=== PATIENT | male | born 1965 | race Caucasian/White ===

== ENCOUNTER → 2016-04-09 | Outpatient (CLI) | payer OTHER ==
[~2016-04-09] MED LIST: ALBU17IN INH; ARTI99.0 OU; LEVA750T PO; PANT40TA2 PO; SYMB16INH INH; TAGA200T3 PO; TYLE650T30 PO; ZYRT10TA2 PO
[2016-04-09 19:06] LABS: ALBUMIN 4.2 GM/DL (3.2-5.2); ALBUMIN/GLOBULIN RATIO 1.11 (1.00-1.93); ALKALINE PHOSPHATASE 59 U/L (45-117); ALT/SGPT 37 U/L (12-78); AMYLASE 45 U/L (25-115); ANION GAP 8 MEQ/L (8-16); AST/SGOT 18 U/L (15-37); BILIRUBIN,TOTAL 0.6 MG/DL (0.2-1.0); BLOOD UREA NITROGEN 14 MG/DL (7-18); CALCIUM LEVEL 9.3 MG/DL (8.5-10.1); CARBON DIOXIDE LEVEL 31 MEQ/L (21-32); CHLORIDE LEVEL 101 MEQ/L (98-107); CREATININE FOR GFR 0.97 MG/DL (0.70-1.30); GLOMERULAR FILTRATION RATE > 60.0 (>56); GLUCOSE, FASTING 88 MG/DL (70-105); POTASSIUM SERUM 4.1 MEQ/L (3.5-5.1); SODIUM LEVEL 140 MEQ/L (136-145)
== END ==
LOC: M WUC 14:04
PROVIDERS: ATTEND Physician Assistant Medical
DX: K85.90 Acute pancreatitis without necrosis or infection, unspecified (principal)

== ENCOUNTER → 2016-04-30 | Outpatient (CLI) | payer OTHER ==
--- NOTE | 2016-04-30 08:26 | REP ---
Right upper quadrant sonography: History: Right upper quadrant abdominal pain. Recent history of acute pancreatitis. Comparison CT study December 24, 2015. Comparison right upper quadrant sonography December 02, 2015. Findings: There is atypical configuration of the liver as seen on CT with a small somewhat nodular left hepatic lobe and a larger right hepatic lobe. Associated with this, the gallbladder has a slightly atypical position more anteriorly position. In addition, the main portal vein has an atypical course in the region of the brianna. These findings are unchanged compared to CT. There is a 1.1 x 0.7 x 0.8 cm hyperechoic zone of the right lobe of the liver compatible with a small hemangioma. This is not visible on CT. No other liver mass lesion is observed. Common bile duct is normal measuring 0.4 cm in greatest diameter. There is no evidence of gallstone or polyp or wall thickening in the gallbladder. No ascites is seen. No right renal abnormality is noted. Right kidney measures 12.3 x 6.2 x 4.2 cm. Impression: Configurational variant in the shape and distribution of the liver with a very small somewhat nodular configuration to the left lobe and a relatively large right lobe. There is a 1.1 cm hemangioma at the dome of the right lobe of the liver. No other significant hepatic finding. Gallbladder is slightly atypical in position but unremarkable morphologically. No stone or polyp seen. Signed by Efren Alexis MD 04/30/2016 12:24 P
== END ==
LOC: M RAD 07:00
PROVIDERS: ATTEND Physician Assistant Medical
DX: D18.00 Hemangioma unspecified site (principal); R10.11 Right upper quadrant pain

== ENCOUNTER → 2016-05-05 | Outpatient (CLI) | payer OTHER ==
--- NOTE | 2016-05-05 13:34 | REP ---
Hepatobiliary scan and gallbladder ejection fraction: History: Right upper quadrant pain. History of pancreatitis. Technique: 5.9 mCi of technetium-99m mebrofenin was injected and sequential anterior images are acquired. 65 minutes after the mebrofenin injection, the patient consumed 8 ounces Ensure and an additional 60 minutes of imaging was acquired. Regions of interest are plotted around the gallbladder. Findings: The initial hepatocellular parenchymal uptake phase is normal and homogeneous. Intra- and extra-hepatic bile ducts and duodenum are labeled by the 10 -minute image. The gallbladder is first labeled on the 15 -minute image. There is normal washout from the liver parenchyma into the gallbladder and small intestine on subsequent images. The gallbladder ejection fraction is normal at 50 %. Values greater than 35 % are considered normal with this technique. Impression: Normal hepatobiliary scan and gallbladder ejection fraction. Signed by Efren Alexis MD 05/05/2016 01:25 P
== END ==
LOC: M RAD 09:05
PROVIDERS: ATTEND Physician Assistant Medical
DX: R10.11 Right upper quadrant pain (principal)

== ENCOUNTER → 2016-09-30 | Outpatient (CLI) | payer OTHER ==
[~2016-09-30] MED LIST changes: +CETI1SYP16 PO; -LEVA750T PO; +LEVA750T7 PO
[2016-09-30 13:27] LABS: BASO # 0.1 K/mm3 (0.0-0.2); BASO % 0.8 % (0.0-1.0); EOS # 0.6 K/mm3 (0.0-0.50); EOS % 8.1 % (0.0-3.0); LARGE UNSTAINED CELL # 0.2 K/mm3 (0.0-0.4); LARGE UNSTAINED CELL % 2.1 % (0.0-4.0); MEAN CORPUSCULAR HEMOGLOBIN 28.8 pg (27.0-33.0); MEAN CORPUSCULAR HGB CONC 34.2 g/dl (32.0-36.5); MEAN CORPUSCULAR VOLUME 84.2 fl (80.0-96.0); MONO # 0.6 K/mm3 (0.0-0.8); MONO % 7.5 % (0.0-5.0); NEUTROPHILS # 4.2 K/mm3 (1.8-7.7); NEUTROPHILS % 56.4 % (36.0-66.0); PLATELET COUNT, AUTOMATED 256 k/mm3 (150-450); RED CELL DISTRIBUTION WIDTH 12.7 % (11.5-14.5); WHITE BLOOD COUNT 7.5 K/mm3 (4.0-10.0)
[2016-09-30 14:15] LABS: ALBUMIN 3.7 GM/DL (3.2-5.2); ALBUMIN/GLOBULIN RATIO 1.03 (1.00-1.93); ALKALINE PHOSPHATASE 51 U/L (45-117); ALT/SGPT 29 U/L (12-78); ANION GAP 8 MEQ/L (8-16); AST/SGOT 13 U/L (15-37); BILIRUBIN,TOTAL 0.5 MG/DL (0.2-1.0); BLOOD UREA NITROGEN 10 MG/DL (7-18); CALCIUM LEVEL 9.2 MG/DL (8.5-10.1); CARBON DIOXIDE LEVEL 27 MEQ/L (21-32); CHLORIDE LEVEL 103 MEQ/L (98-107); CHOLESTEROL LEVEL 141 MG/DL (<200); CREATININE FOR GFR 0.94 MG/DL (0.70-1.30); GLOMERULAR FILTRATION RATE > 60.0 (>56); GLUCOSE, FASTING 103 MG/DL (70-105); POTASSIUM SERUM 4.3 MEQ/L (3.5-5.1); SODIUM LEVEL 138 MEQ/L (136-145); TOTAL PROTEIN 7.3 GM/DL (6.4-8.2); TRIGLYCERIDES LEVEL 127 MG/DL (<150)
== END ==
LOC: M WUC 11:34
PROVIDERS: ATTEND Physician Assistant Medical
DX: K21.9 Gastro-esophageal reflux disease without esophagitis (principal); K22.70 Barrett's esophagus without dysplasia; J45.20 Mild intermittent asthma, uncomplicated

== ENCOUNTER → 2016-10-01 | Outpatient (REF) | payer OTHER ==
[2016-10-01 13:05] LABS: AMYLASE 54 U/L (25-115)
== END ==
LOC: M SFHCADAM 09:28
PROVIDERS: ATTEND Family Medicine
DX: R10.9 Unspecified abdominal pain (principal)

== ENCOUNTER → 2016-11-06 | Outpatient (CLI) | payer OTHER ==
--- NOTE | 2016-11-06 14:30 | REP ---
Clinical: Chronic pain. Technique: AP and lateral views of the right knee. Findings: No acute fracture or dislocation is appreciated. No evidence for effusion. AP view demonstrates minimal increased sclerosis and associated joint space narrowing along the medial compartment. Remainder examination appears relatively normal for age. Impression: Mild degenerative change involving the medial joint compartment. Signed by Kun Chaidez MD 11/06/2016 02:22 P
== END ==
LOC: M ADAMS 14:03
PROVIDERS: ATTEND Physician Assistant Medical
DX: G89.29 Other chronic pain (principal)

== ENCOUNTER 2016-12-12 11:51 | Day surgery (SDC) | payer OTHER ==
[~2016-12-12] VITALS: Ht 175.3 cm; Wt 81.2 kg
[2016-12-12] MEDS ORDERED: PROPOFOL 200 MG/20 ML VIAL As Ordered ONE (12:33)
[2016-12-12] MEDS ORDERED: LIDOCAINE 2% INJ 100 MG/5 ML SDV (FOR ANES.) As Ordered ONE (12:33)
--- NOTE | 2016-12-12 13:03 | ROOR ---
Patient Name: Moy Jacobo Procedure Date: 12/12/2016 12:47 PM Date of : 1965 Age: 51 Room: [facility] Gender: Male Note Status: Finalized Procedure: Upper GI endoscopy Indications: Surveillance for malignancy due to personal history of Burton's esophagus Providers: Efra FAJARDO MD Referring MD: ISRAEL Mcknight Requesting Provider: Medicines: Monitored Anesthesia Care Complications: No immediate complications. Procedure: Pre-Anesthesia Assessment: - The heart rate, respiratory rate, oxygen saturations, blood pressure, adequacy of pulmonary ventilation, and response to care were monitored throughout the procedure. The Endoscope was introduced through the mouth, and advanced to the second part of duodenum. The upper GI endoscopy was accomplished without difficulty. The patient tolerated the procedure well. Findings: There were esophageal mucosal changes consistent with short-segment Burton's esophagus present in the lower third of the esophagus. The maximum longitudinal extent of these mucosal changes was 2 cm in length. Mucosa is smooth, without nodularity. Mucosa was biopsied x 4-6 pieces with a cold forceps for histology randomly at intervals of 1 cm in the lower third of the esophagus. A total of 2 specimen bottles were sent to pathology. A medium-sized hiatal hernia was present. The exam was otherwise without abnormality. Impression: - Esophageal mucosal changes consistent with short-segment (2 cm) Burton's esophagus. Biopsied. - Medium-sized hiatal hernia. - The examination was otherwise normal. Recommendation: - Observe patient's clinical course. - Continue present medications. - Await pathology results. - Repeat upper endoscopy in 3 years for surveillance. Efra Fajardo MD Efra FAJARDO MD 12/12/2016 1:02:42 PM This report has been signed electronically. Number of Addenda: 0 Note Initiated On: 12/12/2016 12:47 PM Estimated Blood Loss: Estimated blood loss: none.
--- NOTE | 2016-12-12 13:28 | ROOR ---
Patient Name: Moy Jacobo Procedure Date: 12/12/2016 12:48 PM Date of : 1965 Age: 51 Room: [facility] Gender: Male Note Status: Finalized Procedure: Colonoscopy Indications: Hematochezia Providers: Efra FAJARDO MD Referring MD: ISRAEL Mcknight Requesting Provider: Medicines: Monitored Anesthesia Care Complications: No immediate complications. Procedure: Pre-Anesthesia Assessment: - The heart rate, respiratory rate, oxygen saturations, blood pressure, adequacy of pulmonary ventilation, and response to care were monitored throughout the procedure. The Colonoscope was introduced through the anus and advanced to 5 cm into the ileum. The colonoscopy was performed without difficulty. The patient tolerated the procedure well. The quality of the bowel preparation was good. Findings: The perianal and digital rectal examinations were normal. The terminal ileum appeared normal. Multiple medium-mouthed diverticula were found in the sigmoid colon. Inflammation characterized by congestion (edema) and erythema was found in a continuous and circumferential pattern from the rectum to the descending colon. This was mild in severity, and when compared to previous examinations, the findings are unchanged. Biopsies were taken with a cold forceps for histology. The exam was otherwise without abnormality on direct and retroflexion views. Impression: - The examined portion of the ileum was normal. - Moderate diverticulosis in the sigmoid colon. - Left-sided ulcerative colitis (segment from 15cm to 50 cm of sigmoid diverticulosis). Inflammation was found from the rectosigmoid to the descending colon. The rectum is relatively spared. This was mild to moderate in severity. The findings are unchanged compared to previous examinations. Biopsied. - The examination was otherwise normal on direct and retroflexion views. Recommendation: - Continue present medications. - Telephone endoscopist for pathology results in 2 weeks. Efra Fajardo MD Efra FAJARDO MD 12/12/2016 1:28:22 PM This report has been signed electronically. Number of Addenda: 0 Note Initiated On: 12/12/2016 12:48 PM Estimated Blood Loss: Estimated blood loss: none.
[2016-12-12 14:05] VITALS: BP 162/110
== END 2016-12-12 14:27 | disposition home or self-care (01) ==
LOC: M OPP 11:51
PROVIDERS: ATTEND Internal Medicine Gastroenterology
DX: K92.1 Melena (principal); K57.30 Diverticulosis of large intestine without perforation or abscess without bleeding; K51.50 Left sided colitis without complications; K22.70 Barrett's esophagus without dysplasia; K44.9 Diaphragmatic hernia without obstruction or gangrene; Z87.19 Personal history of other diseases of the digestive system; K31.89 Other diseases of stomach and duodenum; R12 Heartburn; M19.90 Unspecified osteoarthritis, unspecified site; J45.909 Unspecified asthma, uncomplicated; R06.83 Snoring; Z79.899 Other long term (current) drug therapy; Z91.012 Allergy to eggs

== ENCOUNTER → 2017-11-24 | Outpatient (REF) | payer OTHER ==
[2017-11-24 19:21] LABS: BASO # 0.1 10^3/uL (0.0-0.2); BASO % 0.7 % (0.0-1.0); EOS # 0.8 10^3/uL (0.0-0.50); EOS % 8.9 % (0.0-3.0); HEMATOCRIT 46.1 % (42.0-52.0); HEMOGLOBIN 15.3 g/dl (13.5-17.5); IMMATURE GRANULOCYTE % 0.3 % (0-3.0); LYMPH # 2.2 10^3/uL (1.5-4.5); LYMPH % 25.3 % (24.0-44.0); MEAN CORPUSCULAR HEMOGLOBIN 28.4 pg (27.0-33.0); MEAN CORPUSCULAR HGB CONC 33.2 g/dl (32.0-36.5); MEAN CORPUSCULAR VOLUME 85.5 fl (80.0-96.0); MONO # 0.8 10^3/uL (0.0-0.8); MONO % 8.7 % (0.0-5.0); NEUTROPHILS # 4.9 10^3/uL (1.8-7.7); NEUTROPHILS % 56.1 % (36.0-66.0); PLATELET COUNT, AUTOMATED 271 10^3/uL (150-450); RED BLOOD COUNT 5.39 10^6/uL (4.30-6.10); RED CELL DISTRIBUTION WIDTH 12.5 % (11.5-14.5); WHITE BLOOD COUNT 8.8 10^3/uL (4.0-10.0)
[2017-11-24 19:46] LABS: ALBUMIN 4.2 GM/DL (3.2-5.2); ALBUMIN/GLOBULIN RATIO 1.24 (1.00-1.93); ALKALINE PHOSPHATASE 48 U/L (45-117); ALT/SGPT 33 U/L (12-78); ANION GAP 10 MEQ/L (8-16); AST/SGOT 14 U/L (7-37); BILIRUBIN,TOTAL 0.6 MG/DL (0.2-1.0); BLOOD UREA NITROGEN 13 MG/DL (7-18); CALCIUM LEVEL 9.2 MG/DL (8.5-10.1); CARBON DIOXIDE LEVEL 26 MEQ/L (21-32); CHLORIDE LEVEL 103 MEQ/L (98-107); CHOLESTEROL LEVEL 182 MG/DL (<200); CHOLESTEROL RISK RATIO 3.956 (<5); CREATININE FOR GFR 0.82 MG/DL (0.70-1.30); GLOMERULAR FILTRATION RATE > 60.0 (>56); GLUCOSE, FASTING 79 MG/DL (70-100); HDL CHOLESTEROL 46 MG/DL (>40); LDL CHOLESTEROL 112 MG/DL (<100); NON-HDL-C 136 MG/DL; POTASSIUM SERUM 4.3 MEQ/L (3.5-5.1); SODIUM LEVEL 139 MEQ/L (136-145); TOTAL PROTEIN 7.6 GM/DL (6.4-8.2); TRIGLYCERIDES LEVEL 118 MG/DL (<150)
== END ==
LOC: M SFHCADAM 14:32
DX: I10 Essential (primary) hypertension (principal)

== ENCOUNTER → 2018-03-29 | Outpatient (CLI) | payer BC ==
[~2018-03-29] MED LIST changes: -PANT40TA2 PO; +PANT40TA3 PO; +ZYRT10CA5 PO; -ZYRT10TA2 PO
--- NOTE | 2018-03-29 15:39 | REP ---
Chest two views HISTORY: Cough Comparison: 09/07/2013 The lungs are clear. The heart is normal in size. The pulmonary vasculature is normal in appearance. The bony structure is intact. IMPRESSION: No acute disease. Electronically Signed by Moy Treadwell MD 03/29/2018 03:30 P
== END ==
LOC: M RAD 14:56
PROVIDERS: ATTEND Physician Assistant Medical
DX: R05 Cough (principal)

== ENCOUNTER 2018-04-09 12:37 | Day surgery (SDC) | payer BC ==
[~2018-04-09] VITALS: Ht 170.2 cm; Wt 82.1 kg
[~2018-04-09 12:37] MED LIST changes: +ALLE180T33 PO; +LISI10TA4 PO; +RANI300C PO; +VENTAER INH
[2018-04-09] MEDS ORDERED: NS 1,000 ML IV ONE (15:00)
[2018-04-09] MEDS ORDERED: PROPOFOL 200 MG/20 ML VIAL As Ordered ONE (15:46)
--- NOTE | 2018-04-09 15:54 | ROOR ---
Patient Name: Moy Jacobo Procedure Date: 04/09/2018 3:37 PM Date of : 1965 Age: 52 Room: [facility] Gender: Male Note Status: Finalized Procedure: Upper GI endoscopy Indications: Follow-up of Burton's esophagus Providers: Efra FAJARDO MD Referring MD: ISRAEL Mcknight Requesting Provider: Medicines: Monitored Anesthesia Care Complications: No immediate complications. Procedure: Pre-Anesthesia Assessment: - The heart rate, respiratory rate, oxygen saturations, blood pressure, adequacy of pulmonary ventilation, and response to care were monitored throughout the procedure. The Endoscope was introduced through the mouth, and advanced to the second part of duodenum. The upper GI endoscopy was accomplished without difficulty. The patient tolerated the procedure well. Findings: There were esophageal mucosal changes consistent with short-segment Burton's esophagus present in the lower third of the esophagus. The maximum longitudinal extent of these mucosal changes was 2 cm in length. Mucosa was biopsied with a cold forceps for histology randomly. A total of 2 specimen bottles were sent to pathology. Small Hiatal Hernia. Scattered mild inflammation was found in the gastric antrum. Biopsies were taken with a cold forceps for histology. The exam of the stomach was otherwise normal. The examined duodenum was normal. Impression: - Esophageal mucosal changes consistent with short-segment Burton's esophagus. Biopsied. - Small Hiatal Hernia. - Mild gastritis. Biopsied. - Normal examined duodenum. Recommendation: - Continue present medications. - Telephone endoscopist for pathology results in 2 weeks. - Repeat upper endoscopy in 3 years for surveillance based on pathology results. Efra Fajardo MD Efra FAJARDO MD 04/09/2018 3:54:48 PM This report has been signed electronically. Number of Addenda: 0 Note Initiated On: 04/09/2018 3:37 PM Estimated Blood Loss: Estimated blood loss: none.
[2018-04-09 16:19] VITALS: BP 149/78
== END 2018-04-09 16:25 | disposition home or self-care (01) ==
LOC: M OPP 12:37
PROVIDERS: ATTEND Internal Medicine Gastroenterology
DX: K22.70 Barrett's esophagus without dysplasia (principal); K21.9 Gastro-esophageal reflux disease without esophagitis; K44.9 Diaphragmatic hernia without obstruction or gangrene; K29.70 Gastritis, unspecified, without bleeding; K51.90 Ulcerative colitis, unspecified, without complications; R12 Heartburn; J45.909 Unspecified asthma, uncomplicated; Z91.012 Allergy to eggs; Z79.899 Other long term (current) drug therapy; Z80.9 Family history of malignant neoplasm, unspecified

== ENCOUNTER → 2018-10-18 | Outpatient (REF) | payer BC ==
[~2018-10-18] MED LIST changes: -ARTI99.0 OU; +ARTIDRO2 OU
[2018-10-18 11:37] LABS: BLOOD UREA NITROGEN 15 MG/DL (7-18); CALCIUM LEVEL 9.5 MG/DL (8.5-10.1); CARBON DIOXIDE LEVEL 28 MEQ/L (21-32); CHLORIDE LEVEL 106 MEQ/L (98-107); CREATININE FOR GFR 0.92 MG/DL (0.70-1.30); GLOMERULAR FILTRATION RATE > 60.0 (>56); GLUCOSE, FASTING 101 MG/DL (70-100); POTASSIUM SERUM 4.6 MEQ/L (3.5-5.1); SODIUM LEVEL 137 MEQ/L (136-145)
[2018-10-18 11:47] LABS: MALB URINE SIEMENS 12.1 MG/L; MAU/CREAT RATIO 7.9 MCG/MG (0.0-30.0)
== END ==
LOC: M SFHCPLAZ 09:37
PROVIDERS: ATTEND Family Medicine
DX: I10 Essential (primary) hypertension (principal)

== ENCOUNTER 2018-11-02 08:08 | Emergency (ER) | payer BC ==
[~2018-11-02] VITALS: Ht 172.7 cm; Wt 87.0 kg
[2018-11-02] MEDS ORDERED: MONT10TA2 (08:38)
[2018-11-02] MEDS ORDERED: IPRATROPIUM 0.5MG/ALBUTEROL 2.5MG INH SOL UD 3ML (DUONEB)(J7620) NEB ONE (09:30)
[2018-11-02] MEDS ORDERED: methylPREDNISolone INJ 125 MG/2 ML VIAL (J2930) IV ONE (09:30)
[2018-11-02] MEDS ORDERED: NS 1,000 ML IV ONE (09:30)
[2018-11-02] MEDS: ALBUTEROL SULFATE 2.5 MG/0.5 ML INH NEB SOLN INH PRN ×2 (09:42→10:07)
[2018-11-02 09:44] LABS: BASO # 0.1 10^3/uL (0.0-0.2); BASO % 0.7 % (0.0-1.0); EOS # 0.7 10^3/uL (0.0-0.5); EOS % 6.3 % (0.0-3.0); HEMATOCRIT 48.2 % (42.0-52.0); HEMOGLOBIN 15.5 g/dl (13.5-17.5); LYMPH # 1.7 10^3/uL (1.5-5.0); LYMPH % 15.6 % (24.0-44.0); MEAN CORPUSCULAR HEMOGLOBIN 28.2 pg (27.0-33.0); MEAN CORPUSCULAR HGB CONC 32.2 g/dl (32.0-36.5); MEAN CORPUSCULAR VOLUME 87.6 fl (80.0-96.0); MONO # 0.9 10^3/uL (0.0-0.8); NEUTROPHILS # 7.4 10^3/uL (1.5-8.5); NEUTROPHILS % 68.9 % (36.0-66.0); PLATELET COUNT, AUTOMATED 294 10^3/uL (150-450); WHITE BLOOD COUNT 10.7 10^3/uL (4.0-10.0)
--- NOTE | 2018-11-02 09:49 | REP ---
Chest x-ray: Two views. History: Shortness of breath. Comparison study: March 29, 2018. Findings: The lungs are symmetrically aerated and clear. Heart is not enlarged. Pleural angles are sharp. Pulmonary vasculature is not increased. No significant bony abnormality. Impression: No active disease. Electronically Signed by Efren Alexis MD 11/02/2018 09:40 A
[2018-11-02 10:10] LABS: BLOOD UREA NITROGEN 15 MG/DL (7-18); CALCIUM LEVEL 9.8 MG/DL (8.5-10.1); CARBON DIOXIDE LEVEL 27 MEQ/L (21-32); CHLORIDE LEVEL 105 MEQ/L (98-107); CREATININE FOR GFR 0.96 MG/DL (0.70-1.30); GLOMERULAR FILTRATION RATE > 60.0 (>56); GLUCOSE, FASTING 107 MG/DL (70-100); SODIUM LEVEL 139 MEQ/L (136-145)
[2018-11-02 10:59] VITALS: BP 117/58
[2018-11-02] MEDS ORDERED: PRED20TA PO (11:00)
== END 2018-11-02 11:16 | disposition home or self-care (01) ==
LOC: M ED 08:08
DX: J45.901 Unspecified asthma with (acute) exacerbation (principal); I10 Essential (primary) hypertension; Z87.891 Personal history of nicotine dependence; Z79.899 Other long term (current) drug therapy; Z91.012 Allergy to eggs
CPT/HCPCS: 71046; 80048; 85025; 94640; 96361; 96374; 99284; J2930

== ENCOUNTER → 2019-02-11 | Outpatient (CLI) | payer BC ==
[~2019-02-11] MED LIST changes: +MONT10TA2; +PRED20TA PO
--- NOTE | 2019-02-11 13:13 | REPPI ---
Two-view chest: 02/11/2019. Indication: Cough. Comparison: 11/02/2018. Findings: The lungs are clear. There is no pleural effusion or pneumothorax. The cardiomediastinal silhouette is unremarkable. Impression: No acute cardiopulmonary process. Electronically Signed by Dillon Dooley DO 02/11/2019 01:05 P
== END ==
LOC: M PLAIMG 12:31
PROVIDERS: ATTEND Family Medicine
DX: R05 Cough (principal)

== ENCOUNTER → 2019-04-06 | Outpatient (CLI) | payer BC ==
[~2019-04-06] MED LIST changes: -ARTIDRO2 OU; -MONT10TA2; +MONT10TA4; +POLYOPD OU
== END ==
LOC: M WUC 13:37
PROVIDERS: ATTEND Internal Medicine Cardiovascular Disease
DX: R06.00 Dyspnea, unspecified (principal)

== ENCOUNTER → 2019-10-11 | Outpatient (REF) | payer BC ==
[~2019-10-11] MED LIST changes: +PANT40TA29 PO; -PANT40TA3 PO
== END ==
LOC: M WUC 15:50
PROVIDERS: ATTEND Nurse Practitioner Family
DX: J45.50 Severe persistent asthma, uncomplicated (principal)

== ENCOUNTER → 2019-12-21 | Outpatient (CLI) | payer BC ==
[2019-12-21 10:54] LABS: BLOOD UREA NITROGEN 15 MG/DL (7-18); CALCIUM LEVEL 9.4 MG/DL (8.5-10.1); CARBON DIOXIDE LEVEL 30 MEQ/L (21-32); CHLORIDE LEVEL 106 MEQ/L (98-107); CREATININE FOR GFR 0.88 MG/DL (0.70-1.30); GLOMERULAR FILTRATION RATE > 60.0 (>56); GLUCOSE, FASTING 102 MG/DL (70-100); LIPASE 40 U/L (73-393); POTASSIUM SERUM 4.7 MEQ/L (3.5-5.1); SODIUM LEVEL 140 MEQ/L (136-145)
== END ==
LOC: M WUC 08:13
PROVIDERS: ATTEND Family Medicine
DX: R10.13 Epigastric pain (principal)

== ENCOUNTER → 2019-12-21 | Outpatient (CLI) | payer BC ==
--- NOTE | 2019-12-22 06:57 | REP ---
INDICATION: COUGH, SEVERE PERSISTENT ASTHMA COMPARISON: 02/11/2019 TECHNIQUE: PA and lateral. FINDINGS: The mediastinum and cardiac silhouette are normal. The lung diaz are clear and without acute consolidation, effusion, or pneumothorax. The skeletal structures are intact and normal. IMPRESSION: No acute cardiopulmonary process. <Electronically signed by Kun Chaidez > 12/22/19 0653
== END ==
LOC: M WUC 08:10
PROVIDERS: ATTEND Nurse Practitioner Family
DX: J45.50 Severe persistent asthma, uncomplicated (principal); R05 Cough

== ENCOUNTER → 2020-01-03 | Outpatient (CLI) | payer BC ==
--- NOTE | 2020-01-06 06:34 | REP ---
INDICATION: SEVERE PERISISTENT ASTHMA, COUGH, ABN RES OF PULM FUNCT STUD COMPARISON: 10/06/2013 TECHNIQUE: Axial noncontrast images from the thoracic inlet to the upper abdomen with coronal and sagittal reformations. This CT examination was performed using the following dose reduction techniques: Automated exposure control, adjustment of mA and/or kv according to the patient's size, and use of iterative reconstruction technique. FINDINGS: Mild bronchiectasis is suggested. There is very subtle "tree in bud" infiltrate pattern involving the upper lobes (right greater than left). Findings may reflect sequelae of chronic reactive airway disease and bronchitis. No further obvious interstitial changes or airspace disease noted. No focal consolidation. No effusion or pneumothorax. No axillary, hilar, or mediastinal adenopathy. Atherosclerotic changes to the thoracic aorta and coronary arteries noted without aortic aneurysm or cardiomegaly. No pericardial effusion. Surrounding musculoskeletal structures are intact. Limited upper abdomen demonstrates normal bilateral adrenal glands and left renal hypodensity which cannot be further evaluated. IMPRESSION: 1. Findings described above suggest sequelae of chronic reactive airway disease and possible mild bronchitis. 2. No obvious evidence for further interstitial disease. 3. Left renal hypodensity may warrant renal ultrasound for further evaluation. <Electronically signed by Kun Chaidez > 01/06/20 0631
== END ==
LOC: M RAD 08:49
PROVIDERS: ATTEND Nurse Practitioner Family
DX: J45.909 Unspecified asthma, uncomplicated (principal); R05 Cough

== ENCOUNTER → 2020-01-31 | Outpatient (CLI) | payer BC ==
[~2020-01-31] MED LIST changes: -MONT10TA4; +MONT5TAB2
--- NOTE | 2020-01-31 08:27 | REP ---
INDICATION: N28.89 LT KIDNEY MASS. COMPARISON: Abdomen and pelvis CT with IV and bowel contrast dated 12/24/2015. TECHNIQUE: Multiple real-time ultrasonographic images of the kidneys. FINDINGS: The right kidney measures 12.3 x 6.0 x 4.0 cm. The left kidney measures 12.3 x 5.6 x 7.1 cm. The kidneys are normal size. Renal cortical echogenicity is normal bilaterally. There are no renal calculi. There is no hydronephrosis. There are no solid renal masses on the right on the left. There are no right renal cyst. There is a 1.8 cm left renal cyst subcapsular at the midpole laterally. This cyst was identified on the comparison CT where it measured 1.0 cm. The cyst margin is sharply circumscribed there is no wall nodularity. There are no septa. There is a thin crescentic calcification along the dependent wall of the cyst. This could represent cyst wall calcification or layering calcific debris within the cyst. The findings are compatible with a Bosniak type 2 renal cortical cyst. IMPRESSION: Bosniak type 2 left renal cortical cyst measuring up to 1.8 cm as discussed above. Otherwise, negative renal ultrasound. <Electronically signed by Sharath Ford > 01/31/20 [id number]
== END ==
LOC: M WHC 06:34
PROVIDERS: ATTEND Family Medicine
DX: N28.1 Cyst of kidney, acquired (principal); N28.89 Other specified disorders of kidney and ureter

== ENCOUNTER → 2020-04-11 | Outpatient (CLI) | payer BC ==
[~2020-04-11] MED LIST changes: +LISI10TA22 PO; -LISI10TA4 PO; +MONT10TA10; -MONT5TAB2
--- NOTE | 2020-04-11 08:37 | REPPI ---
INDICATION: R06.02 SOB SHORTNESS OF BREATH COMPARISON: 12/21/2019 TECHNIQUE: PA and lateral. FINDINGS: The mediastinum and cardiac silhouette are normal. The lung diaz are clear and without acute consolidation, effusion, or pneumothorax. The skeletal structures are intact and normal. IMPRESSION: No acute cardiopulmonary process. <Electronically signed by Kun Chaidez > 04/11/20 0833
== END ==
LOC: M PLAIMG 08:02
PROVIDERS: ATTEND Family Medicine
DX: R06.02 Shortness of breath (principal)

== ENCOUNTER → 2020-04-11 | Outpatient (REF) | payer BC | LOC: M SFHCPLAZ 12:41 | PROVIDERS: ATTEND Family Medicine | DX: J45.51 Severe persistent asthma with (acute) exacerbation (principal) ==

== ENCOUNTER → 2020-06-25 | Outpatient (CLI) | payer BC ==
[2020-06-25 16:51] LABS: BLOOD UREA NITROGEN 16 MG/DL (7-18); CALCIUM LEVEL 9.8 MG/DL (8.5-10.1); CARBON DIOXIDE LEVEL 27 MEQ/L (21-32); CHLORIDE LEVEL 106 MEQ/L (98-107); CHOLESTEROL LEVEL 190 MG/DL (<200); CREATININE FOR GFR 0.83 MG/DL (0.70-1.30); GLOMERULAR FILTRATION RATE > 60.0 (>56); GLUCOSE, FASTING 92 MG/DL (70-100); HDL CHOLESTEROL 50 MG/DL (>40); LDL CHOLESTEROL 121 MG/DL (<100); NON-HDL-C 140 MG/DL; POTASSIUM SERUM 4.3 MEQ/L (3.5-5.1); SODIUM LEVEL 139 MEQ/L (136-145); TRIGLYCERIDES LEVEL 93 MG/DL (<150)
== END ==
LOC: M WUC 12:36
PROVIDERS: ATTEND Family Medicine
DX: I10 Essential (primary) hypertension (principal); N28.1 Cyst of kidney, acquired

== ENCOUNTER → 2020-08-16 | Outpatient (CLI) | payer BC ==
--- NOTE | 2020-08-16 09:21 | REP ---
INDICATION: N28.1 RENAL CYST. COMPARISON: 01/31/2020. TECHNIQUE: Real-time sonographic evaluation of the kidneys is performed. FINDINGS: Renal cortical echogenicity pattern is normal bilaterally and contours are smooth. No hydronephrosis bilaterally. There is a cyst of the mid left kidney unchanged in size measuring 1.4 x 1.7 x 1.4 cm. The right kidney measures 13.1 x 5.6 x 4.5 cm. Left renal dimensions are 12.5 x 4.8 x 5.7 cm. The urinary bladder is unremarkable. Incidental note is made of diffuse increased echotexture of the liver compatible with diffuse fibrofatty infiltration. The prostate measures 3.1 x 3.9 x 2.4 cm. IMPRESSION: Stable left renal cyst. <Electronically signed by Sharath Manuel > 08/16/20 0917
== END ==
LOC: M WHC 08:20
PROVIDERS: ATTEND Family Medicine
DX: N28.1 Cyst of kidney, acquired (principal)

== ENCOUNTER → 2020-12-27 | Outpatient (CLI) | payer BC ==
[~2020-12-27] MED LIST changes: +E-Z-GAS II EFFERVESCENT PACKET (SODIUM BICARB./CITRIC ACID/SIMETHICONE) As Ordered ONE; +E-Z-HD 98% w/w 340GM SUSP BTL As Ordered ONE; +E-Z-PAQUE 96% w/w SUSP 176GM BTL As Ordered ONE
--- NOTE | 2020-12-27 19:13 | REP ---
INDICATION: GERD. History of Burton's esophagus. COMPARISON: None TECHNIQUE: This procedure was performed by BECKY Doe, under the direct supervision of Dr. Manuel. Images were reviewed with Dr. Manuel prior to dictation. Liquid barium and gas producing crystals were given in the erect position, as well as liquid barium in the prone oblique position in order to perform a double contrast upper GI examination. FINDINGS: The employment programs analyst film shows no organomegaly or pathological masses. The intestinal gas pattern is unremarkable. The oral and pharyngeal stages of deglutition were unremarkable. Esophageal transport is prompt and efficient and there is no evidence of esophagitis, stricture, or mucosal ring. There is no evidence of a hiatal hernia. Gastroesophageal reflux was observed to above the level of the nimo. The stomach saeed are normally outlined. The rugal folds are smooth and regular. There is no gastritis, neoplasm, or ulcerative disease. The duodenal saeed are normally outlined. The mucosal folds are smooth and regular. There is no duodenitis, peptic ulcer disease or neoplasm. The visualized portion of the proximal small bowel appears normal in course and caliber. IMPRESSION: Gastroesophageal reflux to above the level of the nimo, otherwise unremarkable upper GI study 0.6 minutes of fluoroscopy time was utilized for this procedure. Some fluoroscopic images are performed with last image hold technology. These images require no additional radiation. <Electronically signed by Dominique Katz > 12/27/20 1626 <Electronically signed by Sharath Manuel > 12/27/20 [id number]
== END ==
LOC: M RAD 11:14
PROVIDERS: ATTEND Surgery
DX: K21.9 Gastro-esophageal reflux disease without esophagitis (principal)

== ENCOUNTER → 2021-01-08 | Outpatient (CLI) | payer BC ==
[~2021-01-08] MED LIST changes: -E-Z-GAS II EFFERVESCENT PACKET (SODIUM BICARB./CITRIC ACID/SIMETHICONE) As Ordered ONE; -E-Z-HD 98% w/w 340GM SUSP BTL As Ordered ONE; -E-Z-PAQUE 96% w/w SUSP 176GM BTL As Ordered ONE
[2021-01-08 14:14] LABS: BLOOD UREA NITROGEN 14 MG/DL (7-18); CALCIUM LEVEL 9.8 MG/DL (8.5-10.1); CARBON DIOXIDE LEVEL 28 MEQ/L (21-32); CHLORIDE LEVEL 104 MEQ/L (98-107); CREATININE FOR GFR 0.88 MG/DL (0.70-1.30); GLOMERULAR FILTRATION RATE > 60.0 (>56); GLUCOSE, FASTING 100 MG/DL (70-100); POTASSIUM SERUM 4.3 MEQ/L (3.5-5.1); SODIUM LEVEL 137 MEQ/L (136-145)
== END ==
LOC: M PLALAB 11:28
PROVIDERS: ATTEND Family Medicine
DX: I10 Essential (primary) hypertension (principal)

== ENCOUNTER → 2021-01-16 | Outpatient (CLI) | payer BC | LOC: M LABSMTC 09:53 | PROVIDERS: ATTEND Surgery | DX: Z20.822 Contact with and (suspected) exposure to COVID-19 (principal) ==

== ENCOUNTER → 2021-04-27 | Outpatient (CLI) | payer OTHER ==
[~2021-04-27] MED LIST changes: -MONT10TA10; +MONT10TA97
== END ==
LOC: M LABSMTC 09:21
PROVIDERS: ATTEND Surgery
DX: Z20.822 Contact with and (suspected) exposure to COVID-19 (principal)

== ENCOUNTER → 2021-10-24 | Outpatient (CLI) | payer OTHER | LOC: M LABSMTC 09:17 | PROVIDERS: ATTEND Surgery | DX: Z01.818 Encounter for other preprocedural examination (principal); Z11.52 Encounter for screening for COVID-19 ==

== ENCOUNTER → 2022-01-29 | Outpatient (CLI) | payer OTHER ==
[2022-01-29 15:06] LABS: BASO # 0.1 10^3/uL (0.0-0.2); BASO % 0.7 % (0.0-1.0); EOS # 0.8 10^3/uL (0.0-0.5); EOS % 9.1 % (0.0-3.0); HEMOGLOBIN 15.6 g/dl (13.5-17.5); LYMPH # 2.2 10^3/uL (1.5-5.0); LYMPH % 24.9 % (24.0-44.0); MEAN CORPUSCULAR HGB CONC 31.2 g/dl (32.0-36.5); MEAN CORPUSCULAR VOLUME 86.7 fl (80.0-96.0); MONO # 0.9 10^3/uL (0.0-0.8); NEUTROPHILS # 4.8 10^3/uL (1.5-8.5); NEUTROPHILS % 55.1 % (36.0-66.0); PLATELET COUNT, AUTOMATED 327 10^3/uL (150-450); RED BLOOD COUNT 5.77 10^6/uL (4.30-6.10); WHITE BLOOD COUNT 8.7 10^3/uL (4.0-10.0)
[2022-01-29 15:23] LABS: ALBUMIN 4.3 G/DL (3.2-5.2); ALKALINE PHOSPHATASE 59 U/L (46-116); ALT/SGPT 30 U/L (7.0-40); AST/SGOT 17 U/L (<34); BILIRUBIN,TOTAL 0.5 MG/DL (0.3-1.2); BLOOD UREA NITROGEN 16 MG/DL (9-23); CALCIUM LEVEL 9.8 MG/DL (8.5-10.1); CARBON DIOXIDE LEVEL 28 MMOL/L (20-31); CHLORIDE LEVEL 103 MMOL/L (98-107); CHOLESTEROL LEVEL 175 MG/DL (<200); CHOLESTEROL RISK RATIO 3.77 (<5); CREATININE FOR GFR 0.82 MG/DL (0.70-1.30); GLOMERULAR FILTRATION RATE > 60.0 (>56); GLUCOSE, FASTING 101 MG/DL (60-100); HDL CHOLESTEROL 46.4 MG/DL (>40); LDL CHOLESTEROL 109.6 MG/DL (<100); NON-HDL-C 129 MG/DL; POTASSIUM SERUM 4.8 MMOL/L (3.5-5.1); SODIUM LEVEL 139 MMOL/L (136-145); TOTAL PROTEIN 7.7 G/DL (5.7-8.2); TRIGLYCERIDES LEVEL 95 MG/DL (<150)
== END ==
LOC: M PLALAB 11:19
PROVIDERS: ATTEND Physician Assistant
DX: Z00.00 Encounter for general adult medical examination without abnormal findings (principal); I10 Essential (primary) hypertension; Z12.5 Encounter for screening for malignant neoplasm of prostate
CPT/HCPCS: 36415; 80053; 80061; 85025; G0103

== ENCOUNTER → 2022-12-23 | Outpatient (CLI) | payer OTHER ==
[~2022-12-23] MED LIST changes: +ARTIDRO4 OU; -POLYOPD OU
== END ==
LOC: M PLAIMG 11:34
PROVIDERS: ATTEND Physician Assistant
DX: M79.644 Pain in right finger(s) (principal); M25.531 Pain in right wrist; M18.11 Unilateral primary osteoarthritis of first carpometacarpal joint, right hand

== ENCOUNTER → 2023-09-16 | Outpatient (CLI) | payer OTHER ==
[~2023-09-16] MED LIST changes: +E-Z-GAS II EFFERVESCENT PACKET (SODIUM BICARB./CITRIC ACID/SIMETHICONE) As Ordered ONE; +E-Z-HD 98% w/w 340GM SUSP BTL As Ordered ONE; +E-Z-PAQUE 96% w/w SUSP 176GM BTL As Ordered ONE
== END ==
LOC: M RAD 10:01
PROVIDERS: ATTEND Physician Assistant Surgical
DX: R14.0 Abdominal distension (gaseous) (principal); R93.3 Abnormal findings on diagnostic imaging of other parts of digestive tract

== ENCOUNTER → 2024-03-08 | Outpatient (REF) | payer OTHER ==
[~2024-03-08] MED LIST changes: -E-Z-GAS II EFFERVESCENT PACKET (SODIUM BICARB./CITRIC ACID/SIMETHICONE) As Ordered ONE; -E-Z-HD 98% w/w 340GM SUSP BTL As Ordered ONE; -E-Z-PAQUE 96% w/w SUSP 176GM BTL As Ordered ONE
[2024-03-08 14:31] LABS: BASO # 0.1 10^3/uL (0.0-0.2); BASO % 0.6 % (0.0-1.0); EOS % 9.9 % (0.0-3.0); HEMATOCRIT 49.3 % (42.0-52.0); LYMPH # 1.5 10^3/uL (1.5-5.0); LYMPH % 15.5 % (24.0-44.0); MEAN CORPUSCULAR HEMOGLOBIN 27.5 pg (27.0-33.0); MEAN CORPUSCULAR HGB CONC 32.5 g/dl (32.0-36.5); MEAN CORPUSCULAR VOLUME 84.9 fl (80.0-96.0); MONO # 0.7 10^3/uL (0.0-0.8); MONO % 7.7 % (2.0-8.0); NEUTROPHILS # 6.3 10^3/uL (1.5-8.5); PLATELET COUNT, AUTOMATED 296 10^3/uL (150-450); RED BLOOD COUNT 5.81 10^6/uL (4.30-6.10); WHITE BLOOD COUNT 9.6 10^3/uL (4.0-10.0)
[2024-03-08 14:40] LABS: ALBUMIN 3.7 G/DL (3.2-5.2); ALKALINE PHOSPHATASE 60 U/L (40-129); ALT/SGPT 21 U/L (7.0-40); AST/SGOT 11 U/L (<34); BILIRUBIN,TOTAL 0.4 MG/DL (0.3-1.2); BLOOD UREA NITROGEN 14 MG/DL (9-23); C REACTIVE PROTEIN QUANTITATIV 0.72 MG/DL (<1.0); CALCIUM LEVEL 9.9 MG/DL (8.5-10.1); CARBON DIOXIDE LEVEL 26 MMOL/L (20-31); CHLORIDE LEVEL 104 MMOL/L (98-107); CREATININE FOR GFR 0.73 MG/DL (0.70-1.30); GLOMERULAR FILTRATION RATE > 60.0 (>56); GLUCOSE, FASTING 104 MG/DL (60-100); POTASSIUM SERUM 4.7 MMOL/L (3.5-5.1); SODIUM LEVEL 137 MMOL/L (136-145); TOTAL PROTEIN 7.6 G/DL (5.7-8.2)
[2024-03-08 14:42] LABS: FERRITIN 39.4 NG/ML (10.5-307.3)
== END ==
LOC: M SFHCPLAZ 10:42
PROVIDERS: ATTEND Family Medicine
DX: R19.8 Other specified symptoms and signs involving the digestive system and abdomen (principal); R19.7 Diarrhea, unspecified; K51.90 Ulcerative colitis, unspecified, without complications

== ENCOUNTER 2024-04-05 09:59 | Day surgery (SDC) | payer OTHER ==
[~2024-04-05] VITALS: Ht 172.7 cm; Wt 75.3 kg
[~2024-04-05 09:59] MED LIST changes: +ALBU8.5H; +IPRA0.00; +MESA1.2T PO; -MONT10TA97; +MONT10TA97 PO; +MULTTAB61 PO; +PRED10TA2 PO; +PROBCAP2 PO; +RANI15TA PO
[2024-04-05] MEDS ORDERED: fentaNYL 100 MCG/2 ML INJECTION As Ordered ONE (11:29)
[2024-04-05] MEDS ORDERED: LIDOCAINE 2% 100MG/5ML SDV (FOR ANES.) As Ordered ONE (11:31)
[2024-04-05] MEDS ORDERED: propofoL 200 MG/20 ML VIAL As Ordered ONE (11:31)
[2024-04-05 12:48] VITALS: TEMP 98.2
[2024-04-05 13:09] VITALS: BP 118/79; O2SAT 98
== END 2024-04-05 13:20 | disposition home or self-care (01) ==
LOC: M OPP 09:59
PROVIDERS: ATTEND Internal Medicine Gastroenterology
DX: D12.0 Benign neoplasm of cecum (principal); K57.30 Diverticulosis of large intestine without perforation or abscess without bleeding; K64.8 Other hemorrhoids; K22.70 Barrett's esophagus without dysplasia; D49.0 Neoplasm of unspecified behavior of digestive system; R19.7 Diarrhea, unspecified; R63.4 Abnormal weight loss; Z87.19 Personal history of other diseases of the digestive system; K29.50 Unspecified chronic gastritis without bleeding; K22.89 Other specified disease of esophagus; K31.1 Adult hypertrophic pyloric stenosis; R93.3 Abnormal findings on diagnostic imaging of other parts of digestive tract; Z91.012 Allergy to eggs; Z91.048 Other nonmedicinal substance allergy status; Z79.52 Long term (current) use of systemic steroids; Z79.899 Other long term (current) drug therapy
CPT/HCPCS: 43239; 45380; 88108; 88305; J3010

== ENCOUNTER → 2024-04-08 | Outpatient (CLI) | payer OTHER ==
[~2024-04-08] MED LIST changes: +ISOVUE-370 76% 100ML VIAL As Ordered ONE
== END ==
LOC: M RAD 08:46
PROVIDERS: ATTEND Physician Assistant Medical
DX: K51.911 Ulcerative colitis, unspecified with rectal bleeding (principal); R63.4 Abnormal weight loss; R10.30 Lower abdominal pain, unspecified; K57.30 Diverticulosis of large intestine without perforation or abscess without bleeding; N28.1 Cyst of kidney, acquired; N40.1 Benign prostatic hyperplasia with lower urinary tract symptoms
CPT/HCPCS: 74177; Q9967

== ENCOUNTER 2024-06-21 11:08 | Outpatient (CLI) | payer OTHER ==
[~2024-06-21] VITALS: Ht 172.7 cm; Wt 75.8 kg
[~2024-06-21 11:08] MED LIST changes: -ISOVUE-370 76% 100ML VIAL As Ordered ONE
[2024-06-21 11:20] VITALS: BP 156/89; O2SAT 98
[2024-06-21] MEDS: VEDOLIZUMAB 300 MG in NS 250 ML IV ONE (12:09)
[2024-06-21 13:30] VITALS: BP 148/89; O2SAT 98
== END 2024-06-21 13:30 ==
LOC: M INFU 11:08
PROVIDERS: ATTEND Internal Medicine Gastroenterology
DX: K50.919 Crohn's disease, unspecified, with unspecified complications (principal)
CPT/HCPCS: 96413; J3380

== ENCOUNTER 2024-07-05 11:33 | Outpatient (CLI) | payer OTHER ==
[~2024-07-05] VITALS: Ht 172.7 cm; Wt 76.0 kg
[2024-07-05 12:00] VITALS: BP 130/73; O2SAT 98
[2024-07-05] MEDS: VEDOLIZUMAB 300 MG in NS 250 ML IV ONE (12:38)
[2024-07-05 13:25] VITALS: BP 154/70; O2SAT 97
== END 2024-07-05 13:25 ==
LOC: M INFU 11:33
PROVIDERS: ATTEND Internal Medicine Gastroenterology
DX: K50.919 Crohn's disease, unspecified, with unspecified complications (principal)
CPT/HCPCS: 96413; J3380

== ENCOUNTER → 2024-07-14 | Outpatient (REF) | payer OTHER ==
[2024-07-14 13:47] LABS: HEMOGLOBIN A1c 5.7 % (4.0-6.0)
[2024-07-14 13:59] LABS: PSA SCREENING 1.13 NG/ML (< 4.00)
[2024-07-14 14:01] LABS: FREE T4 1.23 NG/DL (0.89-1.76)
[2024-07-14 14:02] LABS: FERRITIN 41.2 NG/ML (10.5-307.3); THYROID STIMULATING HORMONE 1.845 uIU/ML (0.55-4.78)
[2024-07-14 14:04] LABS: FOLATE 20.5 NG/ML (>5.4)
[2024-07-14 14:07] LABS: CHOLESTEROL RISK RATIO 2.92 (<5); HDL CHOLESTEROL 57.4 MG/DL (>40); LDL CHOLESTEROL 97.6 MG/DL (<100); NON-HDL-C 110.6 MG/DL
[2024-07-14 14:08] LABS: PERCENT SATURATION 15.5 % (19.7-50.0)
== END ==
LOC: M SFHCPLAZ 09:15
PROVIDERS: ATTEND Nurse Practitioner Family
DX: N40.0 Benign prostatic hyperplasia without lower urinary tract symptoms (principal); R41.3 Other amnesia; Z13.220 Encounter for screening for lipoid disorders; Z13.1 Encounter for screening for diabetes mellitus; Z13.29 Encounter for screening for other suspected endocrine disorder
CPT/HCPCS: 80061; 82607; 82728; 82746; 83036; 83550; 84439; 84443; G0103

== ENCOUNTER 2025-01-16 06:56 | Emergency (ER) | payer OTHER ==
[~2025-01-16] VITALS: Ht 172.7 cm; Wt 78.5 kg
[2025-01-16 07:49] LABS: VENOUS BASE EXCESS -1.2 (-2.0-2.0); VENOUS HCO3 25.3 MMOL/L (23.0-27.0); VENOUS O2 SATURATION 76.7 % (60.0-80.0); VENOUS PARTIAL PRESSURE CO2 48.5 mmHg (38.0-50.0); VENOUS PARTIAL PRESSURE O2 40.1 mmHg (30.0-50.0); VENOUS PH 7.336 UNITS (7.330-7.430); VENOUS STANDARD HCO3 22.9 MMOL/L; VENOUS TOTAL CO2 26.8 MMOL/L (24.0-28.0)
[2025-01-16 07:54] LABS: BASO # 0.1 10^3/uL (0.0-0.2); BASO % 0.8 % (0.0-1.0); EOS # 0.9 10^3/uL (0.0-0.5); EOS % 12.2 % (0.0-3.0); LYMPH # 1.6 10^3/uL (1.5-5.0); LYMPH % 22.0 % (24.0-44.0); MONO # 0.5 10^3/uL (0.0-0.8); MONO % 6.5 % (2.0-8.0); NEUTROPHILS # 4.1 10^3/uL (1.5-8.5); NEUTROPHILS % 58.2 % (36.0-66.0); PLATELET COUNT, AUTOMATED 261 10^3/uL (150-450)
[2025-01-16 08:28] LABS: INR 0.87
[2025-01-16 08:30] LABS: ALT/SGPT 39 U/L (7.0-40); AST/SGOT 21 U/L (<34); CALCIUM LEVEL 8.9 MG/DL (8.3-10.6); CARBON DIOXIDE LEVEL 25 MMOL/L (20-31); CHLORIDE LEVEL 106 MMOL/L (98-107); CREATININE FOR GFR 0.72 MG/DL (0.70-1.30); GLOMERULAR FILTRATION RATE > 90.0 (>49); POTASSIUM SERUM 4.4 MMOL/L (3.5-5.1); SODIUM LEVEL 141 MMOL/L (136-145)
[2025-01-16] MEDS ORDERED: ISOVUE-370 76% 100 ML VIAL As Ordered ONE (08:32)
[2025-01-16] MEDS: ALBUTEROL SULFATE 2.5 MG/0.5 ML INH CONCENTRATE NEB SOLN INH ONE (08:33)
[2025-01-16] MEDS: IPRATROPIUM 0.5 MG/ALBUTEROL 2.5 MG INH SOL UD 3 ML NEB ONE (08:33)
[2025-01-16] MEDS: AUGMENTIN 875 MG TAB PO ONE (10:50)
[2025-01-16] MEDS ORDERED: ALBU8.5H INH (10:51)
[2025-01-16] MEDS ORDERED: PRED20TA PO (10:51)
[2025-01-16] MEDS ORDERED: AMOX875T2 PO (10:51)
[2025-01-16 11:06] VITALS: O2SAT 94
[2025-01-16 11:07] VITALS: BP 152/92; TEMP 97.8; O2SAT 92
== END 2025-01-16 11:09 | disposition home or self-care (01) ==
LOC: EDBD 06:56 → M ED 06:56
DX: J45.901 Unspecified asthma with (acute) exacerbation (principal); K21.9 Gastro-esophageal reflux disease without esophagitis; Z87.891 Personal history of nicotine dependence; J30.81 Allergic rhinitis due to animal (cat) (dog) hair and dander; K57.30 Diverticulosis of large intestine without perforation or abscess without bleeding; Z87.09 Personal history of other diseases of the respiratory system; Z79.899 Other long term (current) drug therapy; Z91.0120 Allergy to eggs, unspecified
CPT/HCPCS: 71045; 71275; 74177; 80048; 80076; 82803; 83605; 83880; 84145; 84443; 85025; 85610; 87040; 87486; 87581; 87633; 87798; 93005; 93041; 94640; 94760; 99285; Q9967